=== PATIENT | male | born 1990 | race African-American/Black ===

== ENCOUNTER 2022-02-05 01:04 | Emergency (ER) | payer MEDICAID ==
[~2022-02-05] VITALS: Ht 170.2 cm; Wt 70.3 kg
--- NOTE | 2022-02-05 01:35 | NUR ---
Patient was called to be triaged but was not present in the waitinjg room or outside of ER.
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
[2022-02-05] MEDS ORDERED: GUAIFENESIN/CODEINE 5 ML LIQUID UDC PO ONE (02:45)
[2022-02-05] MEDS ORDERED: GUAIFENESIN/CODEINE 5 ML LIQUID UDC ONE (02:46)
[2022-02-05] MEDS ORDERED: GUAI5SYR4 PO ×2 (02:57→03:01)
[2022-02-05 03:18] VITALS: BP 128/79
--- NOTE | 2022-02-05 03:18 | NUR ---
Patient discharged to home in stable condition. Written and verbal after care instructions given. Patient verbalizes understanding of instructions. Stressed follow up or return to ER for worsening s/s. Patient ambulated fr the ER with steady gait. All belongings with patient.
== END 2022-02-05 03:19 | disposition home or self-care (01) ==
LOC: ER 01:12 → EDBD 01:12 → ER 03:19
DX: R05.3 Chronic cough (principal); Z59.00 Homelessness unspecified; F17.210 Nicotine dependence, cigarettes, uncomplicated; L90.5 Scar conditions and fibrosis of skin; T14.8XXS Other injury of unspecified body region, sequela; X95.9XXS Assault by unspecified firearm discharge, sequela
CPT/HCPCS: A4663